=== PATIENT | female | born 1975 | race Caucasian/White ===

== ENCOUNTER 2017-07-06 16:38 | Emergency (ER) | payer SELFPAY ==
[2017-07-06 16:39] VITALS: RESP 18; O2SAT 99; BMI 38.0
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
[2017-07-06 18:14] VITALS: BP 122/85; PULSE 98; RESP 18; TEMP 36.7; O2SAT 98
== END 2017-07-06 18:14 | disposition home or self-care (01) ==
PROVIDERS: Emergency Provider Emergency Medicine; Family Provider Internal Medicine Adolescent Medicine
DX: Z02.89 Encounter for other administrative examinations (principal); F43.12 Post-traumatic stress disorder, chronic; V89.1XXA Person injured in unspecified nonmotor-vehicle accident, nontraffic, initial encounter
CPT/HCPCS: 99281